=== PATIENT | male | born 1990 | race Caucasian/White ===

== ENCOUNTER 2024-01-21 05:43 | Day surgery (SDC) | payer OTHER ==
[2024-01-19 11:48] LABS: BASOPHILS % (AUTO) 0.6 % (0-1); EOSINOPHILS # (AUTO) 0.2 X10'3 (0-0.9); EOSINOPHILS % (AUTO) 2.5 % (0-6); LYMPHOCYTES # (AUTO) 2.3 X10'3 (1.1-4.8); LYMPHOCYTES % (AUTO) 32.9 % (21-51); MEAN CORPUSCULAR HGB CONC 33.6 g/dL (33.0-36.5); MEAN CORPUSCULAR VOLUME 86.1 FL (78-98); MEAN PLATELET VOLUME 8.3 FL (7.4-10.4); MONOCYTES # (AUTO) 0.7 X10'3 (0-0.9); MONOCYTES % (AUTO) 10.1 % (2-12); NEUTROPHILS # (AUTO) 3.8 X10'3 (1.8-7.7); NEUTROPHILS % (AUTO) 53.9 % (42-75); PRE OP HEMATOCRIT 45.4 % (42.0-52.0); PRE OP HEMOGLOBIN 15.3 g/dL (14.0-17.9); PRE OP PLATELET COUNT 287 X10'3 (140-440); PRE OP WHITE BLOOD COUNT 7.1 10'3 (4.8-10.8); RED BLOOD COUNT 5.27 X10'6 (4.70-6.10); RED CELL DISTRIBUTION WIDTH 14.4 % (11.5-14.5)
[2024-01-19 12:08] LABS: ALBUMIN 3.8 G/DL (3.4-5.0); ALKALINE PHOSPHATASE 59 IU/L (46-116); BLOOD UREA NITROGEN 18 MG/DL (7-18); BUN/CREATININE RATIO 15.5 (10.0-20.0); CALCIUM 8.9 MG/DL (8.5-10.1); CHLORIDE 105 MMOL/L (99-107); CREATININE 1.16 MG/DL (0.60-1.10); PRE OP ANION GAP 9 (8-16); PRE OP AST 31 U/L (10-37); PRE OP GLUCOSE 112 MG/DL (70-104); PRE OP POTASSIUM 4.2 MMOL/L (3.4-5.1); PRE OP SODIUM 139 MMOL/L (135-145); TOTAL CARBON DIOXIDE 25.2 MMOL/L (24-32); TOTAL PROTEIN 7.8 G/DL (6.4-8.2); eGFR 72 ML/MIN
[2024-01-19 12:11] LABS: PRE OP ALT 87 U/L (30-65)
[~2024-01-21] VITALS: Ht 182.9 cm; Wt 147.4 kg
[2024-01-21] VITALS (9 sets, daily range): BP systolic 140–161; BP diastolic 80–99; PULSE 71–76; RESP 14–25; TEMP 98.1; O2SAT 88–98
[~2024-01-21 05:43] MED LIST: ASCO100031 PO; CELE-193 PO; CYCL-394 PO; FAMO20TA8 PO; OMEG-166 PO; ringers solution, lacted 1,000 ML IV SCH
[2024-01-21] MEDS: ceFAZolin inj. 3,000 MG in normal saline 100ml IV soln 100 ML IV ONE (06:09)
[2024-01-21] MEDS: famotidine 20mg tablet PO ONE (06:10)
[2024-01-21] MEDS ORDERED: LIDOcaine 1% 30ml preserv. free vial ONE ×2 (06:16→08:11)
[2024-01-21] MEDS ORDERED: BUPIVAcaine/PF 2.5mg/ml (0.25%) 10ml vial ONE ×2 (06:17→08:11)
[2024-01-21] MEDS ORDERED: BUPIVACAINE liposomal/PF 13.3 MG/ML vial IM ONE (06:17)
[2024-01-21] MEDS ORDERED: midazolam 1 mg/ML 2ml injection ONE (07:23)
[2024-01-21] MEDS ORDERED: fentaNYL/PF 50MCG/1 ML 2ML syringe ONE ×2 (07:23→07:44)
[2024-01-21] MEDS ORDERED: sevoflurane 250ml liquid IH ONE (07:25)
[2024-01-21] MEDS: LIDOcaine 1% 30ml preserv. free vial IJ ONE (08:10)
[2024-01-21] MEDS ORDERED: rocuronium 10mg/ml inj IV ONE ×2 (08:24)
[2024-01-21] MEDS ORDERED: ondansetron/PF 4mg/2ml inj ONE (08:24)
[2024-01-21] MEDS ORDERED: propofol inj 20 ML IV ONE ×2 (08:24→08:25)
[2024-01-21] MEDS ORDERED: succinylcholine 20mg/ml inj IV ONE (08:24)
[2024-01-21] MEDS ORDERED: LIDOcaine 1%/PF 5ML 10 MG/ML VIAL ONE (08:25)
[2024-01-21] MEDS ORDERED: dexamethasone sod phosphate 4mg/ml inj. ONE (08:25)
[2024-01-21] MEDS ORDERED: labetalol 20mg/4ml (5mg/ml) syringe IV ONE (08:26)
[2024-01-21] MEDS ORDERED: sugammadex 200mg/2ml injection IV ONE ×2 (08:30→08:31)
[2024-01-21] MEDS ORDERED: morphine 4 MG/ML inj SYRINge IV PRN (09:05)
[2024-01-21] MEDS ORDERED: meperidine/PF 25mg/ml syringe IV PRN ×2 (09:05)
[2024-01-21] MEDS ORDERED: ondansetron/PF 4mg/2ml inj IV PRN (09:05)
[2024-01-21] MEDS ORDERED: ringers solution, lacted 1,000 ML IV SCH (09:05)
[2024-01-21] MEDS ORDERED: morphine 2 MG/ML inj. syringe IV PRN (09:05)
[2024-01-21] MEDS ORDERED: labetalol 20mg/4ml (5mg/ml) syringe IV PRN (09:05)
[2024-01-21] MEDS ORDERED: acetaminophen 1,000mg/100ml IV 100 ML IV ONE (09:05)
[2024-01-21] MEDS ORDERED: oxyCODONE/APAP 5-325mg tablet PO PRN (09:15)
== END 2024-01-21 09:58 | disposition home or self-care (01) ==
LOC: PAS 05:43
PROVIDERS: ATTEND Surgery
DX: K42.9 Umbilical hernia without obstruction or gangrene (principal); K21.9 Gastro-esophageal reflux disease without esophagitis; G47.33 Obstructive sleep apnea (adult) (pediatric); Z87.891 Personal history of nicotine dependence; Z79.899 Other long term (current) drug therapy; Z98.890 Other specified postprocedural states
CPT/HCPCS: 36415; 49591; 64488; 80053; 82948; 85025; 93005; C1781; C9290; J0330; J0690; J1100; J2250; J2405; J2704; J3010; J3490; J7030; J7120; Z7506; Z7508; Z7512; A4215; A4615; A4618